=== PATIENT | male | born 1950 | race Caucasian/White ===

== ENCOUNTER → 2020-03-04 | Outpatient (CLI) | payer OTHER ==
--- NOTE | 2020-03-04 14:59 | 2DMMODE ---
[facility] [place] [address] 2 D/M-MODE ECHOCARDIOGRAM Name: JOSEPHINE MONTGOMERY Room #: BERNABE SmallCamilla#: [id number] Admission: 03/04/20 Attend Phys: Nate Bradley MD Discharge: Date of : 48 Report #: [id number] THIS REPORT FOR: cc: Nate Bradley MD,Nate Boswell,Jude Barragan MD ~ APPROVED REPORT Study performed: 03/04/2020 12:24:48 EXAM: Comprehensive 2D, Doppler, and color-flow Echocardiogram Patient Location: Out-Patient Room #: Echo lab 1 Status: routine BSA: 2.02 HR: 60 bpm BP: 132/78 mmHg Rhythm: 3 Other Information Study Quality: Good Indications CAD Hypertension/HDD 2D Dimensions RVDd: 33.38 mm IVSd: 8.96 (7-11mm) LVOT Diam: 22.85 (18-24mm) LVDd: 47.98 mm PWd: 9.46 (7-11mm) Ascending Ao: 35.43 (22-36mm) LVDs: 35.20 (25-40mm) Aortic Root: 38.36 mm IVC: 16.00 mm Volumes Left Atrial Volume (Systole) Single Plane 4CH: 44.63 mL Single Plane 2CH: 43.84 mL LA ESV Index: 24.00 mL/m2 Aortic Valve AoV Peak Isidoro.: 1.37 m/s AO Peak Gr.: 7.48 mmHg LVOT Max P.73 mmHg LVOT Max V: 0.97 m/s STEVIE Vmax: 2.90 cm2 [facility] [address] [place] [address] 2 D/M-MODE ECHOCARDIOGRAM Name: JOSEPHINE MONTGOMERY Room #: REG [facility]#: [id number] Admission: 03/04/20 Attend Phys: Nate Bradley MD Discharge: Date of : 48 Report #: [id number] Mitral Valve E/A Ratio: 0.8 MV Decel. Time: 325.22 ms MV E Max Isidoro.: 0.60 m/s MV A Isidoro.: 0.72 m/s MV PHT: 94.31 ms IVRT: 166.09 ms Pulmonary Valve PV Peak Isidoro.: 1.18 m/s PV Peak Gr.: 5.54 mmHg Pulmonary Vein P Vein S: 0.54 m/s P Vein A: 0.29 m/s P Vein D: 0.37 m/s P Vein A Dur.: 96.9 msec P Vein S/D Ratio: 1.46 Left Ventricle The left ventricle is normal size. There is normal LV segmental wall motion. There is normal left ventricular wall thickness. Left ventricular systolic function is normal. The left ventricular ejection fraction is within the normal range. LVEF is 50-55%. Mild diastolic dysfunction is present (impaired relaxation pattern). Right Ventricle The right ventricle is normal size. The right ventricular systolic function is normal. Atria The left atrium size is normal. The right atrium size is normal. Aortic Valve The aortic valve is normal in structure. No aortic regurgitation is present. There is no aortic valvular stenosis. Mitral Valve The mitral valve is normal in structure. Trace to mild mitral regurgitation. No evidence of mitral valve stenosis. Tricuspid Valve The tricuspid valve is normal in structure. There is no tricuspid valve regurgitation noted. Pulmonic Valve [facility] [email or web address] [address] 2 D/M-MODE ECHOCARDIOGRAM Name: JOSEPHINE MONTGOMERY Room #: REG [facility].#: [id number] Admission: 03/04/20 Attend Phys: Nate Bradley MD Discharge: Date of : 48 Report #: [id number] The pulmonary valve is normal in structure. There is no pulmonic valvular regurgitation. Great Vessels The aortic root is normal in size. IVC is normal in size and collapses >50% with inspiration. Pericardium There is no pericardial effusion. <Conclusion> Left ventricular systolic function is normal. There is normal LV segmental wall motion. LVEF is 50-55%. Mild diastolic dysfunction The aortic valve is normal in structure. No aortic regurgitation or stenosis The mitral valve is normal in structure. Trace to mild mitral regurgitation. There is normal left ventricular wall thickness. <ELECTRONICALLY SIGNED> By: Jude Boswell MD 03/04/201457 [id number] Jude Boswell MD /ANNE
== END ==
LOC: CV 10:09
PROVIDERS: ATTEND Orthopaedic Surgery
DX: I34.0 Nonrheumatic mitral (valve) insufficiency (principal); I25.10 Atherosclerotic heart disease of native coronary artery without angina pectoris